=== PATIENT | female | born 1975 | race Caucasian/White ===

== ENCOUNTER 2017-08-01 14:27 | Emergency (ER) | payer OTHER ==
[2017-08-01 14:39] VITALS: BP 132/59
--- NOTE | 2017-08-01 14:46 | UC ---
Throat Pain/Nasal Adam HPI - HPI Summary HPI Summary: per nursing triage:ONSET YESTERDAY WITH A SORE THROAT, MAINLY RIGHT. NOW BILATERAL EAR PAIN, AND PAIN BELOW HER JAW. FEVER AT HOME 101.5 TODAY. EXPOSED TO STREP THROAT SHE STATES. NO COUGH. - History of Current Complaint Chief Complaint: UCRespiratory Stated Complaint: EAR,THROAT COMPLAINT Time Seen by Provider: 08/01/17 14:30 Hx Obtained From: Patient Hx Last Menstrual Period: HAS THE MIRENA , DOES NOT HAVE REG PERIODS Onset/Duration: Sudden Onset, Lasting Days Severity: Moderate Associated Signs & Symptoms: Positive: Dysphagia, Fever - Allergies/Home Medications Allergies/Adverse Reactions: Allergies Allergy/AdvReac Type Severity Reaction Status Date / Time No Known Allergies Allergy Verified 08/01/17 14:31 Home Medications: Home Medications Dextromethorphan-Phenylephrine [Day Time Multi-Symptom Co 10-5-325 mg] 1 cap PO PRN 08/01/17 [History] Levonorgestrel (Iud) [Mirena IUD] 20 mcg IU 08/01/17 [History] PMH/Surg Hx/FS Hx/Imm Hx Previously Healthy: Yes - Surgical History Surgical History: Yes Surgery Procedure, Year, and Place: TONSILLECTOMY, CHOLECYSTECTOMY, APPENDECTOMY - Family History Known Family History: Positive: Hypertension - Social History Alcohol Use: None Substance Use Type: None Smoking Status (MU): Current Every Day Smoker Type: Cigarettes Amount Used/How Often: 1/2 PPD Household Exposure Type: Cigarettes - Immunization History Most Recent Influenza Vaccination: JUN 2017 Review of Systems Constitutional: Fever, Fatigue Skin: Negative ENT: Sore Throat Respiratory: Negative Cardiovascular: Negative Gastrointestinal: Negative Genitourinary: Negative Motor: Negative Neurovascular: Negative Musculoskeletal: Negative Neurological: Negative Psychological: Negative Is Patient Immunocompromised?: No All Other Systems Reviewed And Are Negative: Yes Physical Exam Triage Information Reviewed: Yes Vital Signs: Initial Vital Signs Temp 98.5 F 08/01/17 14:33 Pulse 97 08/01/17 14:33 Resp 18 08/01/17 14:33 BP 132/59 08/01/17 14:33 Pulse Ox 100 08/01/17 14:33 Throat Pain/Nasal Course/Dx - Course Course Of Treatment: hx obtained, exam performed ,meds reviewed, rapid strep obtained. patient was exposed to strep - Differential Dx/Diagnosis Differential Diagnosis/HQI/PQRI: Laryngitis, Francisco's Angina, Otitis Media, Pharyngitis, Sinusitis, URI Provider Diagnoses: otitis media right. pharyngitis. fever Discharge - Discharge Plan Condition: Stable Disposition: HOME Patient Education Materials: Pharyngitis (ED) Referrals: Eliu Winkler MD [Primary Care Provider] - Additional Instructions: 1. take the medication as prescribed. 2. Increase fluid intake and get plenty of rest 3. TYlenol and MOtrin for pain and fever.
[2017-08-01] MEDS ORDERED: predniSONE TAB* 20 MG PO ONE (14:50)
[2017-08-01] MEDS ORDERED: Amoxicillin PO (*) 500 MG CAP PO ONE (14:50)
== END 2017-08-01 15:03 | disposition home or self-care (01) ==
LOC: UCCORT 14:27
DX: J02.9 Acute pharyngitis, unspecified (principal); H66.91 Otitis media, unspecified, right ear; F17.210 Nicotine dependence, cigarettes, uncomplicated
CPT/HCPCS: 87651; 99212; A9270-GY; G0463; J7512

== ENCOUNTER 2019-07-16 11:24 | Emergency (ER) | payer BC, OTHER ==
[2019-07-16 13:46] VITALS: BP 147/93
--- NOTE | 2019-07-16 13:56 | UC ---
Skin Complaint HPI - HPI Summary HPI Summary: 44 y/o female presents to the urgent care c/o RT axilla w/ a infected pimple for the past week. Pt states she usually shaves her axilla, but she never had any infection around them. She has applied Neosporin topical oint and a bandage since pustule has been draining yellowish drainage. Symptoms worsen yesterday since she developed a mild rash where the adhesive was. Area is now swollen, painful a tocuh 7/10. She has not taken any medications to alleviate symptoms. Pt denies fever, SOB, chest pain, abdominal pain, N/V/D. - History of Current Complaint Chief Complaint: UCSkin Time Seen by Provider: 07/16/19 13:55 Stated Complaint: SKIN COMP Hx Obtained From: Patient Hx Last Menstrual Period: unknown ?: No Onset/Duration: Gradual Onset, Lasting Weeks - 1 week, Still Present, Worse Since - 2 days Skin Exposure Onset/Duration: Weeks Ago - 1 week Onset Severity: Mild Current Severity: Moderate Pain Intensity: 7 Pain Scale Used: 0-10 Numeric Location: Other - RT axilla w/ an infected pimple Character: Swelling, Redness, Raised, Painful Aggravating Factor(s): Touch Alleviating Factor(s): OTC Creams/Salves Associated Signs & Symptoms: Positive: Rash - RT axilla w/ infected painful pimple, Drainage - yellowish, Tenderness. Negative: Fever, Chills Related History: Other: - shaving - Allergy/Home Medications Allergies/Adverse Reactions: Allergies Allergy/AdvReac Type Severity Reaction Status Date / Time No Known Allergies Allergy Verified 07/18/19 15:21 PMH/Surg Hx/FS Hx/Imm Hx Previously Healthy: Yes - Pt denies PMHX - Surgical History Surgical History: Yes Surgery Procedure, Year, and Place: TONSILLECTOMY, CHOLECYSTECTOMY, APPENDECTOMY - Family History Known Family History: Positive: Cardiac Disease, Hypertension, Diabetes - Social History Occupation: Employed Full-time Lives: With Family Alcohol Use: None Substance Use Type: None Smoking Status (MU): Current Every Day Smoker Type: Cigarettes Amount Used/How Often: 1/2 PPD Household Exposure Type: Cigarettes - Immunization History Most Recent Influenza Vaccination: JUN 2017 Review of Systems All Other Systems Reviewed And Are Negative: Yes Constitutional: Positive: Negative Skin: Positive: Other - RT axilla w/ a painful infected pimple Eyes: Positive: Negative ENT: Positive: Negative Respiratory: Positive: Negative Cardiovascular: Positive: Negative Gastrointestinal: Positive: Negative Genitourinary: Positive: Negative Motor: Positive: Negative Neurovascular: Positive: Negative Musculoskeletal: Positive: Negative Neurological: Positive: Negative Psychological: Positive: Negative Is Patient Immunocompromised?: No Physical Exam - Summary Physical Exam Summary: Vital Signs Reviewed: Yes General: well developed, well nourished female sitting in the examining table w/ o any apparent distress Eye Exam: Normal Eyes: Positive: Conjunctiva Clear - PERRLA, EOMI, fundi grossly normal ENT: Positive: Normal ENT inspection, Hearing grossly normal, Pharynx normal, TMs normal Neck: Positive: Supple, Nontender, No Lymphadenopathy Respiratory: Positive: Chest non-tender, Lungs clear, Normal breath sounds, No respiratory distress Cardiovascular: Positive: RRR, No Murmur, Pulses Normal, Brisk Capillary Refill Abdomen Description: Positive: Nontender, No Organomegaly, Soft. Negative: CVA Tenderness (R), CVA Tenderness (L) Bowel Sounds: Positive: Present Musculoskeletal: Positive: Strength Intact, ROM Intact, No Edema Neurological: Positive: Alert, Muscle Tone Normal Psychological Exam: Normal Skin: Positive: RT axilla with a small erythematous pustule that is indurated and fluctuant, tender to palpation, swollen, and warm to touch about 2.0x1.0xm in size. FROM of RT arm, sensation is intact, capillary refill WNL, reflexes WNL Triage Information Reviewed: Yes Vital Signs: Initial Vital Signs Temp 97.8 F 07/16/19 13:40 Pulse 80 07/16/19 13:40 Resp 16 07/16/19 13:40 BP 147/93 07/16/19 13:40 Pulse Ox 96 07/16/19 13:40 Course/Dx - Course Course Of Treatment: 44 y/o female presents to the urgent care c/o RT axilla w/ a infected pimple for the past week. Pt states she usually shaves her axilla, but she never had any infection around them. She has applied Neosporin topical oint and a bandage since pustule has been draining yellowish drainage. Symptoms worsen yesterday since she developed a mild rash where the adhesive was. Area is now swollen, painful a touch 7/10. She has not taken any medications to alleviate symptoms. Pt denies fever, SOB, chest pain, abdominal pain, N/V/D. Hx obtained. Pt w/ a RT axillary abscess on examination. I&D of abscess procedure:The procedure was explained and consent obtained. [place] protocol performed. The wound was anesthetized with 2mL of Lido 1% with good anesthesia. Sterile drape and prep were done. The fluctuant center was incised with #11 blade scalpel. A moderate amount of caseous material was expressed . wound cultures obtained and sent to lab top r/o MRSA. The wound was probed for loculated areas and irrigated with normal saline. The wound was packed loosely with wick or left open. Bacitracin topical ointment applied and wound covered with sterile dressing. The patient tolerated the procedure well. Pt Rx Bactrim PO, and bacitracin oint. Advised to return to the urgent care for wound check up. Pt advised fever develops and pain increase despite ABX to go immediately to the ER for further management. Pt's BP is elevated today advised to decrease salt in diet, monitor BP and f/u with PCP for further management. Pt understood and agreed with D/C instructions. Left the clinic ambulating A&OX3. - Differential Diagnoses - Skin Complaint Differential Diagnoses: Abscess, Cellulitis, Contact Dermatitis, Lymphadenitis, MRSA, Urticaria, Other - hydradenitis suppurative - Diagnoses Provider Diagnosis: Abscess of right axilla, Elevated BP without diagnosis of hypertension Discharge ED - Sign-Out/Discharge Documenting (check all that apply): Patient Departure - d/C home All imaging exams completed and their final reports reviewed: No Studies - Discharge Plan Condition: Stable Disposition: HOME Prescriptions: Bacitracin OINTMENT* 1 applic TOPICAL BID #1 tube Sulfamethox/Trimethoprim DS* [Bactrim DS 800/160 TAB*] 1 tab PO BID #20 tab Patient Education Materials: Abscess (ED) Referrals: [facility] [place] [facility] [Outside] Additional Instructions: 1-Please take full course of antibiotic to avoid resistance. Keep wound clean and dry with a sterile dressing. Apply bacitracin topical as directed. apply warm compresses to soften the other cysts around your Rt axilla 2- F/u wound check up in 2 days with your PCP or at the urgent care for removal of packing 3-. Take Ibuprofen PO q6-8hrs prn for pain or swelling. 4-If you develop fever or redness despite antibiotic please go to the ER immediately or return to the Urgent care. 5- Wound culture sent to lab, if any abnormal result you will receive a call from us. 6- Your BP is elevated today. please decrease salt in your diet, monitor BP and if it continues to be elevated please f/u with your PCP for further management. - Billing Disposition and Condition Condition: STABLE Disposition: Home - Attestation Statements Provider Attestation: Per institutional requirements, I have reviewed the chart, however, I was not consulted specifically or made aware of this patient by the midlevel provider. I did not personally evaluate, interact with , or disposition this patient.
[2019-07-16] MEDS ORDERED: Lidocaine 1% MPF ** 5 ML VIAL INJ ONE (14:16)
--- NOTE | 2019-07-18 07:25 | UC ---
- Progress Note Progress Note: Preliminary wound culture report reviewed Staph aureus positive Patient currently on Bactrim No change in plan- await final sensitivity report Course/Dx - Diagnoses Provider Diagnoses: Abscess of right axilla, Elevated BP without diagnosis of hypertension Discharge ED - Sign-Out/Discharge Documenting (check all that apply): Post-Discharge Follow Up All imaging exams completed and their final reports reviewed: No Studies - Discharge Plan Condition: Stable Disposition: HOME Prescriptions: Bacitracin OINTMENT* 1 applic TOPICAL BID #1 tube Sulfamethox/Trimethoprim DS* [Bactrim DS 800/160 TAB*] 1 tab PO BID #20 tab Patient Education Materials: Abscess (ED) Referrals: [facility] [place] [facility] [Outside] Additional Instructions: 1-Please take full course of antibiotic to avoid resistance. Keep wound clean and dry with a sterile dressing. Apply bacitracin topical as directed. apply warm compresses to soften the other cysts around your Rt axilla 2- F/u wound check up in 2 days with your PCP or at the urgent care for removal of packing 3-. Take Ibuprofen PO q6-8hrs prn for pain or swelling. 4-If you develop fever or redness despite antibiotic please go to the ER immediately or return to the Urgent care. 5- Wound culture sent to lab, if any abnormal result you will receive a call from us. 6- Your BP is elevated today. please decrease salt in your diet, monitor BP and if it continues to be elevated please f/u with your PCP for further management. - Billing Disposition and Condition Condition: STABLE Disposition: Home
== END 2019-07-16 15:27 | disposition home or self-care (01) ==
LOC: UCCORT 11:24
DX: L02.411 Cutaneous abscess of right axilla (principal); R03.0 Elevated blood-pressure reading, without diagnosis of hypertension
CPT/HCPCS: 10060; 87070; 87077; 87186; 87205; 87640; 87641; 99212; G0463

== ENCOUNTER 2019-07-18 14:43 | Emergency (ER) | payer BC ==
[2019-07-18 15:20] VITALS: BP 133/76
[2019-07-18] MEDS ORDERED: Lidocaine 1% w EPI 1:200,000* SDV 30 ML VIAL INJ ONE (15:43)
--- NOTE | 2019-07-18 16:44 | UC ---
HPI Wound/Suture Re-check - HPI Summary HPI Summary: Pleasant 44 yo female presents for planned recheck R axilla abscess site s/p I/ D 07/16/19. Reports that packing came out earlier today. Still hurts a lot. Not worse. Has been using warm compresses, bacitracin, taking po bactrim ds. Last tet < 10 years, thinks utd d/t requirements. No fever / chills. Other than axilla, no other sores. - History Of Current Complaint Chief Complaint: UCSkin Stated Complaint: WOUND CHECK RIGHT ARMPIT Time Seen by Provider: 07/18/19 15:22 Hx Last Menstrual Period: IUD Pain Intensity: 3 Pain Scale Used: 0-10 Numeric - Allergies/Home Medications Allergies/Adverse Reactions: Allergies Allergy/AdvReac Type Severity Reaction Status Date / Time No Known Allergies Allergy Verified 07/18/19 15:21 PMH/Surg Hx/FS Hx/Imm Hx Previously Healthy: Yes - Surgical History Surgical History: Yes Surgery Procedure, Year, and Place: TONSILLECTOMY, CHOLECYSTECTOMY, APPENDECTOMY - Family History Known Family History: Positive: Hypertension - Social History Alcohol Use: None Substance Use Type: None Smoking Status (MU): Current Every Day Smoker Type: Cigarettes Amount Used/How Often: 1/2 PPD Household Exposure Type: Cigarettes - Immunization History Most Recent Influenza Vaccination: JUN 2017 Review of Systems All Other Systems Reviewed And Are Negative: Yes Constitutional: Positive: Other - see hpi Skin: Positive: Other - see hpi Eyes: Positive: Negative ENT: Positive: Negative Respiratory: Positive: Negative Cardiovascular: Positive: Negative Gastrointestinal: Positive: Negative Genitourinary: Positive: Negative Motor: Positive: Negative Neurovascular: Positive: Negative Musculoskeletal: Positive: Negative Neurological: Positive: Negative Psychological: Positive: Negative Is Patient Immunocompromised?: No Physical Exam Triage Information Reviewed: Yes Appearance: Well-Appearing, Well-Nourished Vital Signs: Initial Vital Signs Temp 97.6 F 07/18/19 15:16 Pulse 80 07/18/19 15:16 Resp 16 07/18/19 15:16 BP 133/76 07/18/19 15:16 Pulse Ox 100 07/18/19 15:16 Vital Signs Reviewed: Yes Eye Exam: Normal - grossly nonfocal ENT Exam: Normal - grossly nonfocal Neck exam: Normal - grossly nonfocal Respiratory Exam: Normal - RR normal, no tachypnea, no dyspnea Cardiovascular Exam: Normal - HR normal, nondiaphoretic. Abdominal Exam: Normal - sitting up, no c/o's Musculoskeletal Exam: Other - see "skin" below, o/w nad Neurological Exam: Normal - grossly nonfocal Psychological Exam: Normal - nad Skin Exam: Other - non-diaphoretic. R axilla with + dermatitis in the pattern of a dressing. There are a couple areas of folliculitis. + redness, rodney around the area of the abscess. There is a 0.5cm (est) opening at site of abscess I/D, the wound was gently explored with a sterile q-tip probe. No karlos purulence. Wound dressed by myself. I reviewed wound care, she will start when she gets home, after picking up meds. Questions as posed answered to the best of my ability. Course/Dx - Course Course Of Treatment: Reviewed wound cx results from 07/16/19. + staph aureus, non-mrsa. + resist to bactrim ds and pcn. See cx report. New rx escribed - clindamycin, mupirocin. Reviewed wound care. See avs. D/w St aureus precautions. Declines work note. Questions as posed answered to the best of my ability. - Diagnosis Provider Diagnosis: Abscess, Dermatitis Discharge ED - Sign-Out/Discharge Documenting (check all that apply): Patient Departure All imaging exams completed and their final reports reviewed: No Studies - Discharge Plan Condition: Stable Disposition: HOME Prescriptions: Clindamycin HCl 300 mg PO TID 7 Days #21 capsule Mupirocin 2% OINT* [Bactroban 2 % Oint*] 1 applic TOPICAL DAILY #1 tube Patient Education Materials: Abscess (ED), Dermatitis (ED) Referrals: [facility] [place] [facility] [Outside] No Primary Care Phys,NOPCP [Primary Care Provider] - Additional Instructions: Apply THIN layer of 50 /50 hydrocortisone cream (over the counter) and mupirocin 2% ointment (prescription) once daily to affected area. overlie gauze or pad, lite tape. AVOID "Non-stick" bandages. Shower with dressing changes, avoid direct scrub. Use white soap, pat and air dry. Follow up with a primary care physician, as soon as you are able. Seek medical attention for worse or new problems in the meantime. Hydrate. Stop bactrim ds. Start clindamycin. Stop bacitracin. Start mupirocin (ointment). Check with your primary care physician about your tetanus immunization status. - Billing Disposition and Condition Condition: STABLE Disposition: Home
== END 2019-07-18 16:24 | disposition home or self-care (01) ==
LOC: UCCORT 14:43
DX: L02.411 Cutaneous abscess of right axilla (principal); L30.9 Dermatitis, unspecified; F17.210 Nicotine dependence, cigarettes, uncomplicated
CPT/HCPCS: 99212; G0463; J2001